=== PATIENT | female | born 1950 ===

== ENCOUNTER 2016-11-15 18:01 | Inpatient (IN) | payer MEDICARE, MEDICAID ==
[2016-11-15 18:38] VITALS: BMI 31.2
[2016-11-15] MEDS ORDERED: Sodium Chloride 0.9% 1,000 ML IV ONE (19:53)
--- NOTE | 2016-11-15 19:53 | C.PDOC ---
History Of Present Illness Patient presents to the ER with a complaint of severe, sharp, stabbing, abdominal pain for the past 2-3 days, associated with nausea and vomiting. Patient reports having a PMHx of ovarian CA. Denies fever or chills. Time Seen by Provider: 11/15/16 19:52 Chief Complaint (Nursing): Abdominal Pain History Per: Patient History/Exam Limitations: no limitations Onset/Duration Of Symptoms: Days (2-3) Current Symptoms Are (Timing): Still Present Context: Other (Not known) Severity: Moderate Pain Scale Rating Of: 5 Location Of Pain/Discomfort: Diffuse Radiation Of Pain To:: None Quality Of Discomfort: Sharp, Stabbing Associated Symptoms: Nausea, Vomiting. denies: Fever, Chills Exacerbating Factors: None Alleviating Factors: None Recent travel outside of the [place]: No Abnormal Vaginal Bleeding: No Past Medical History Reviewed: Historical Data, Nursing Documentation, Vital Signs Vital Signs: Last Vital Signs Temp 98.1 F 11/15/16 18:38 Pulse 78 11/15/16 18:38 Resp 16 11/15/16 18:38 BP 130/80 11/15/16 18:38 Pulse Ox 100 11/15/16 22:54 - Medical History PMH: Arthritis, HTN, Hypercholesterolemia, Hyperlipidemia, Malignancy (Ovarian cancer, uterine cancer, colon cancer.), Osteoporosis Surgical History: No Surg Hx Family History: States: No Known Family Hx - Social History Hx Tobacco Use: No Hx Alcohol Use: No Hx Substance Use: No - Immunization History Hx Tetanus Toxoid Vaccination: No Hx Influenza Vaccination: No Hx Pneumococcal Vaccination: No Review Of Systems Constitutional: Negative for: Fever, Chills ENT: Negative for: Throat Pain Cardiovascular: Negative for: Chest Pain, Palpitations Respiratory: Negative for: Shortness of Breath Gastrointestinal: Positive for: Nausea, Vomiting, Abdominal Pain Genitourinary: Negative for: Hematuria Musculoskeletal: Negative for: Back Pain Skin: Negative for: Rash, Lesions, Jaundice, Bruising Neurological: Negative for: Weakness Psych: Negative for: Anxiety Physical Exam - Physical Exam Appears: Non-toxic Skin: Warm, Dry Head: Normacephalic Eye(s): bilateral: Normal Inspection Oral Mucosa: Moist Neck: Supple Chest: Symmetrical, No Tenderness Cardiovascular: Rhythm Regular, No Murmur Respiratory: No Rales, No Rhonchi, No Wheezing Gastrointestinal/Abdominal: Soft, No Tenderness Back: Normal Inspection Extremity: Normal ROM Extremity: Bilateral: Atraumatic, Normal Color And Temperature, Normal ROM Neurological/Psych: Oriented x3, Normal Speech, Normal Cognition Gait: Steady ED Course And Treatment - Laboratory Results Result Diagrams: 11/15/16 20:02 11/15/16 20:02 O2 Sat by Pulse Oximetry: 100 Pulse Ox Interpretation: Normal Progress Note: CT abd/pel w/ IV contrast, blood work and urinalysis ordered. Pepcid IVP, morphine IVP, zofran IVP, and IV fluids administered. Disposition Discussed With Dr.: Raj Tony Comment: accepted the pt on his service and took over the care at 10:53 PM Doctor Will See Patient In The: Hospital Counseled Patient/Family Regarding: Studies Performed, Diagnosis - Disposition Disposition: HOSPITALIZED Disposition Time: 19:53 Condition: FAIR - Clinical Impression Clinical Impression: Abdominal pain, Pancreatitis - Scribe Statement The provider has reviewed the documentation as recorded by the Scribsamuel Moore All medical record entries made by the Curtibsamuel were at my direction and personally dictated by me. I have reviewed the chart and agree that the record accurately reflects my personal performance of the history, physical exam, medical decision making, and the department course for this patient. I have also personally directed, reviewed, and agree with the discharge instructions and disposition. Decision To Admit - Pt Status Changed To: Hospital Disposition Of: Inpatient - Admit Certification Admit to Inpatient:: After my assessment, the patient will require hospitalization for at least two midnights. This is because of the severity of symptoms shown, intensity of services needed, and/or the medical risk in this patient being treated as an outpatient. - InPatient: Physician Admission Certification:: After my assessment, the patient will require hospitalization for at least two midnights. This is because of the severity of symptoms shown, intensity of services needed, and/or the medical risk in this patient being treated as an outpatient. - . Bed Request Type: Regular Admitting Physician: Raj Tony Patient Diagnosis: Abdominal pain, Pancreatitis
[2016-11-15] MEDS ORDERED: Sodium Chloride 0.9% 1,000 ML ONE (20:00)
[2016-11-15] MEDS ORDERED: Morphine 4 MG/ML VIAL ONE (20:00)
[2016-11-15 20:07] LABS: BASO # 0.1 K/uL (0.0-0.2); BASO % 0.9 % (0.0-2.0); EOS # 0.5 K/uL (0.0-0.7); EOS % 3.9 % (0.0-4.0); HEMATOCRIT 42.9 % (34.0-47.0); LYMPH # 3.9 K/uL (1.0-4.3); LYMPH % 29.2 % (20.0-40.0); MEAN CORPUSCULAR HEMOGLOBIN 27.5 pg (27.0-31.0); MEAN CORPUSCULAR HGB CONC 32.4 g/dL (33.0-37.0); MONO # 0.9 K/uL (0.0-0.8); RED CELL DISTRIBUTION WIDTH 14.2 % (11.5-14.5); WHITE BLOOD COUNT 13.3 K/uL (4.8-10.8)
[2016-11-15 20:10] LABS: RBC URINE < 1 /hpf (0-3); URINE BILIRUBIN NEGATIVE (NEGATIVE); URINE BLOOD NEGATIVE (NEGATIVE); URINE COLOR Colorless (YELLOW); URINE GLUCOSE (UA) NORMAL (Normal); URINE KETONE NEGATIVE (NEGATIVE); URINE LEUKOCYTE ESTERASE NEG Leu/uL (Negative); URINE PROTEIN NEGATIVE (NEGATIVE); URINE UROBILINOGEN NORMAL mg/dL (0.2-1.0); WBC URINE 2 /hpf (0-5)
[2016-11-15 20:36] LABS: CHLORIDE 99 mmol/L (98-107)
[2016-11-15 20:37] LABS: POTASSIUM 3.9 mmol/L (3.6-5.2); SODIUM 134 mmol/L (132-148)
[2016-11-15 20:40] LABS: ALB/GLOB RATIO 1.3 (1.0-2.1); ALKALINE PHOSPHATASE 94 U/L (38-126); ALT/SGPT 26 U/L (9-52); AST/SGOT 27 U/L (14-36); BILIRUBIN,TOTAL 0.5 mg/dL (0.2-1.3); BLOOD UREA NITROGEN 16 mg/dL (7-17); CALCIUM 8.9 mg/dl (8.6-10.4); CARBON DIOXIDE 27 mmol/L (22-30); GFR AFRICAN-AMERICAN > 60; GLUCOSE,RANDOM 105 mg/dL (65-105); TOTAL PROTEIN 7.1 g/dL (6.3-8.3)
[2016-11-15] MEDS ORDERED: HYDROmorphone 1 mg/ml ISec IVP STA (21:26)
[2016-11-15] MEDS ORDERED: HYDROmorphone 1 mg/ml ISec ONE (21:33)
[2016-11-15] MEDS ORDERED: DiphenhydrAMINE 50 mg/ml Inj ONE (21:49)
[2016-11-15] MEDS ORDERED: DiphenhydrAMINE 50 mg/ml Inj IVP STA (21:50)
[2016-11-16 00:15] VITALS: RESP 20
[2016-11-16] MEDS ORDERED: DiphenhydrAMINE 50 mg/ml Inj IVP PRN (01:04)
[2016-11-16] MEDS: Dextrose 5%/0.45% NS 1,000 ML IV SCH ×4 (01:45→21:24)
[2016-11-16 08:14] LABS: BASO # 0.1 K/uL (0.0-0.2); BASO % 0.9 % (0.0-2.0); EOS # 0.6 K/uL (0.0-0.7); EOS % 5.3 % (0.0-4.0); HEMATOCRIT 40.2 % (34.0-47.0); LYMPH # 3.3 K/uL (1.0-4.3); LYMPH % 32.2 % (20.0-40.0); MEAN CELL VOLUME 85.1 fL (81.0-99.0); MEAN CORPUSCULAR HEMOGLOBIN 27.7 pg (27.0-31.0); MEAN CORPUSCULAR HGB CONC 32.6 g/dL (33.0-37.0); MEAN PLATELET VOLUME 9.4 fL (7.2-11.7); MONO # 0.7 K/uL (0.0-0.8); MONO % 6.6 % (0.0-10.0); RED CELL DISTRIBUTION WIDTH 14.3 % (11.5-14.5); WHITE BLOOD COUNT 10.4 K/uL (4.8-10.8)
[2016-11-16 08:25] LABS: CHLORIDE 99 mmol/L (98-107); SODIUM 135 mmol/L (132-148)
[2016-11-16 08:26] LABS: POTASSIUM 3.6 mmol/L (3.6-5.2)
[2016-11-16 08:28] LABS: ALB/GLOB RATIO 1.2 (1.0-2.1); ALKALINE PHOSPHATASE 59 U/L (38-126); ALT/SGPT 26 U/L (9-52); AST/SGOT 24 U/L (14-36); BILIRUBIN,TOTAL 0.7 mg/dL (0.2-1.3); BLOOD UREA NITROGEN 12 mg/dL (7-17); CARBON DIOXIDE 30 mmol/L (22-30); GFR AFRICAN-AMERICAN > 60; GLUCOSE,RANDOM 95 mg/dL (65-105); TOTAL PROTEIN 6.2 g/dL (6.3-8.3)
[2016-11-16 08:29] LABS: CALCIUM 8.2 mg/dl (8.6-10.4)
[2016-11-16] MEDS: Enoxaparin 40 mg Syringe SC SCH (10:36)
--- NOTE | 2016-11-16 12:14 | CT ---
PROCEDURE: CT Abdomen and Pelvis with contrast HISTORY: abd pain, ovarian ca COMPARISON: Comparison is made to the previous study dated 08/27/2016 TECHNIQUE: Contrast dose: 100 cc Omnipaque 300. Axial and reformatted coronal and sagittal CT images of the abdomen and pelvis were obtained after IV contrast administration. Radiation dose: Total exam DLP = 888.16 mGy-cm. This CT exam was performed using one or more of the following dose reduction techniques: Automated exposure control, adjustment of the mA and/or kV according to patient size, and/or use of iterative reconstruction technique. FINDINGS: LOWER THORAX: No evidence of acute pathology. No significant interval change in the liver lobular stand. LIVER: Unremarkable. No gross lesion or ductal dilatation. GALLBLADDER AND BILE DUCTS: Unremarkable. PANCREAS: Unremarkable. No gross lesion or ductal dilatation. SPLEEN: Unremarkable. ADRENALS: Unremarkable. No mass. KIDNEYS AND URETERS: Unremarkable. No hydronephrosis. No solid mass. VASCULATURE: Unremarkable. No aortic aneurysm. BOWEL: No evidence of bowel obstruction. Again seen is anterior lower abdominal wall ventral hernia contains bowel loops without evidence of obstruction or incarceration. No evidence of pneumatosis or diverticulitis. The stomach is not distended. APPENDIX: Normal appendix. PERITONEUM: Unremarkable. No free fluid. No free air. LYMPH NODES: Unremarkable. No enlarged lymph nodes. BLADDER: Unremarkable. REPRODUCTIVE: The patient is likely status post total hysterectomy. BONES: No acute fracture. OTHER FINDINGS: None. IMPRESSION: Moderate size ventral hernia to the right of the midline in the lower abdominal wall contains bowel loops without evidence of obstruction or incarceration. Prior bowel surgery. No evidence of bowel obstruction. Preliminary report was submitted by [facility].
--- NOTE | 2016-11-16 13:23 | US ---
HISTORY: pancreatitis COMPARISON: Comparison is made to the previous CT of the abdomen dated 11/15/2016 TECHNIQUE: Sonographic evaluation of the abdomen. FINDINGS: LIVER: Measures 14.2 cm. Increased echogenicity of the liver parenchyma. No mass. No intrahepatic bile duct dilatation. GALLBLADDER: Unremarkable. No gallstones. COMMON BILE DUCT: Measures 3.6 mm. No stones. No dilatation. PANCREAS: No evidence of suspicious lesion in the pancreas. The pancreas partially image due to overlying bowel gas. RIGHT KIDNEY: Measures 9.5 x 4.4 x 4.3cm. Normal echogenicity. No calculus, mass, or hydronephrosis. LEFT KIDNEY: Measures 9.7 x 4.6 x 4.4cm. Normal echogenicity. No calculus, mass, or hydronephrosis. SPLEEN: Normal in size and contour. No mass. AORTA: No aneurysmal dilatation. IVC: Unremarkable. OTHER FINDINGS: None. IMPRESSION: Echogenic liver suggestive of fatty liver infiltration. Partially visualized pancreas demonstrate no mass lesion or dilated main pancreatic duct.
--- NOTE | 2016-11-16 14:38 | CP.PCM.HP ---
History of Present Illness - History of Present Illness History of Present Illness: 66-year-old female patient with past medical history of hypertension, colon cancer with lung metastasis S/P partial colectomy and chemotherapy 5 years ago, and ovarian/uterine cancer S/P total hysterectomy presenting with abdominal pain. Patient describes sudden onset of progressive epigastric and diffuse upper abdominal pain with radiation to back for 3 days prior to admission. Associated chills, nausea and 3 episodes of diarrhea daily for 3 days. Denies vomiting, hematemesis, diarrhea, constipation, melena, hematochezia, fever, sweats. Denies alcohol use or fatty food intake. Present on Admission - Present on Admission Any Indicators Present on Admission: No Past Patient History - Past Medical History & Family History Past Medical History?: Yes - Past Social History Smoking Status: Never Smoked - CARDIAC Hx Cardiac Disorders: Yes Hx Hypercholesterolemia: Yes Hx Hypertension: Yes - PULMONARY Hx Respiratory Disorders: Yes Other/Comment: Right lung cancer - chemo ( 5 years ago) - NEUROLOGICAL Hx Neurological Disorder: No - HEENT Hx HEENT Problems: No - RENAL Hx Chronic Kidney Disease: No - ENDOCRINE/METABOLIC Hx Endocrine Disorders: No - HEMATOLOGICAL/ONCOLOGICAL Hx Blood Disorders: Yes Hx Cancer: Yes (lung and colon ca) Hx Chemotherapy: Yes (5 years ago) Other/Comment: Pt in remission - INTEGUMENTARY Hx Dermatological Problems: No - MUSCULOSKELETAL/RHEUMATOLOGICAL Hx Arthritis: Yes - GASTROINTESTINAL Hx Gastrointestinal Disorders: Yes Hx Gastroesophageal Reflux: Yes - GENITOURINARY/GYNECOLOGICAL Hx Genitourinary Disorders: Yes Hx Ovarian Cancer: Yes Hx Uterine Cancer: Yes - PSYCHIATRIC Hx Psychophysiologic Disorder: No Hx Substance Use: No - SURGICAL HISTORY Hx Surgeries: Yes Hx Hysterectomy: Yes Other/Comment: colon surgery, removed - ANESTHESIA Hx Anesthesia: Yes Hx Anesthesia Reactions: No Hx Malignant Hyperthermia: No Meds Home Medications: Home Medication List Medication Instructions Recorded Confirmed Type Ibuprofen [Motrin Tab] 600 mg PO Q8H PRN #12 tab 11/18/16 Rx Lisinopril [Zestril] 10 mg PO DAILY #30 11/18/16 Rx Omeprazole 20 mg PO DAILY #30 11/18/16 Rx Allergies/Adverse Reactions: Allergies Allergy/AdvReac Type Severity Reaction Status Date / Time shrimp Allergy Severe RASH Verified 01/16/17 04:19 iodine Allergy Verified 01/16/17 04:19 hydromorphone [From Dilaudid] AdvReac ITCHING Verified 01/16/17 04:19 Physical Exam - Constitutional Appears: Well - Head Exam Head Exam: ATRAUMATIC, NORMAL INSPECTION, NORMOCEPHALIC - Eye Exam Eye Exam: EOMI, Normal appearance, PERRL Pupil Exam: NORMAL ACCOMODATION, PERRL - ENT Exam ENT Exam: Mucous Membranes Moist, Normal Exam - Neck Exam Neck exam: Positive for: Normal Inspection - Respiratory Exam Respiratory Exam: Decreased Breath Sounds - Cardiovascular Exam Cardiovascular Exam: REGULAR RHYTHM, +S1, +S2 - GI/Abdominal Exam GI & Abdominal Exam: Diminished Bowel Sounds, Soft - Rectal Exam Rectal Exam: Deferred Results - Vital Signs Recent Vital Signs: Last Vital Signs Temp 97.9 F 11/16/16 07:38 Pulse 78 11/16/16 07:38 Resp 20 11/16/16 07:38 BP 98/60 L 11/16/16 07:38 Pulse Ox 96 11/16/16 07:38 - Labs Result Diagrams: 11/17/16 08:12 11/17/16 08:12 Labs: Laboratory Results - last 24 hr 11/16/16 11/16/16 08:07 08:07 WBC 10.4 RBC 4.72 Hgb 13.1 Hct 40.2 MCV 85.1 MCH 27.7 MCHC 32.6 L RDW 14.3 Plt Count 223 MPV 9.4 Neut % (Auto) 55.0 Lymph % (Auto) 32.2 Whitman % (Auto) 6.6 Eos % (Auto) 5.3 H Baso % (Auto) 0.9 Neut # 5.7 Lymph # 3.3 Whitman # 0.7 Eos # 0.6 Baso # 0.1 Sodium 135 Potassium 3.6 Chloride 99 Carbon Dioxide 30 Anion Gap 10 BUN 12 Creatinine 0.6 L Est GFR ( Amer) > 60 Est GFR (Non-Af Amer) > 60 Random Glucose 95 Calcium 8.2 L Total Bilirubin 0.7 AST 24 ALT 26 Alkaline Phosphatase 59 Total Protein 6.2 L Albumin 3.4 L Globulin 2.8 Albumin/Globulin Ratio 1.2 Lipase 1570 H Assessment & Plan (1) Abdominal pain Status: Acute (2) Acute chest wall pain Status: Acute (3) Back pain Status: Acute (4) Bronchitis Status: Acute (5) Bronchitis Status: Acute (6) Chest pain Status: Acute (7) Conjunctivitis, left eye Status: Acute (8) Constipation Status: Acute (9) Cough Status: Acute (10) Diarrhea Status: Acute (11) Dyspnea Status: Acute (12) Dysuria Status: Acute (13) Enteritis Status: Acute (14) Pancreatitis Status: Acute (15) Thoracic back pain Status: Acute (16) Thoracic back sprain Status: Acute - Assessment and Plan (Free Text) Plan: Consult neurology Consult GI Benadryl Lovenox IV fluid Follow-up with lab
--- NOTE | 2016-11-16 17:39 | RAD ---
PROCEDURE: Cervical Spine Radiographs. HISTORY: Pain. COMPARISON: None. FINDINGS: BONES: Straightening of the cervical spine is noted. DISC SPACES: Av degenerative changes more prominent at C4-C5 associated with narrowing of the intervertebral disc space. SOFT TISSUES: Normal. No prevertebral soft tissue swelling. OTHER FINDINGS: None. IMPRESSION: Degenerative changes more prominent at C4-C5 associated with osteophyte formation and narrowing of the intervertebral disc space.
--- NOTE | 2016-11-16 19:32 | CON ---
DATE: 11/16/2016 HISTORY OF PRESENT ILLNESS: This is a 66-year-old female with past medical history of hyper tension, high cholesterol, hyperlipidemia, and ovarian, uterine and colon cancer, osteoporosis, arthr itis, came here with the complaint of abdominal pain for 3 days. The patient also been complaining o f pain in the right upper extremity for the last and called to evaluate the patient. The patie nt is ambulating and no numbness, tingling in the pain. PAST MEDICAL HISTORY: As above. SOCIAL HISTORY: Does smoke, does not drink. PHYSICAL EXAMINATION: VITAL SIGNS: Blood pressure 130/80. HEENT: Normocephalic, atraumatic. NECK: Supple. NEUROLOGIC: Alert, awake, oriented x 3. No aphasia. Cranial nerves II through XII were tested. Pu pils reactive. EOM intact. Visual turner full. No facial asymmetry. Tongue midline. Motor examin ation: Moves all the extremities equally. Tone normal. Deep tendon reflexes 1+. Both plantars are downgoing. Sensory appears intact. Cerebellar, gait normal. IMPRESSION: Possibly cervical radiculopathy. We will do the MRI of the cervical spine and further m anagement after the results of above tests. LABORATORY DATA: WBC 13.3, hemoglobin 13.9, hematocrit 42.9, platelets 264. Sodium 134, potassium 3 .9, chloride 99, CO2 of 27, glucose 105, BUN 16, creatinine 0.8 and workup in progress. We will foll ow up. Efra Echevarria MD cc: [id number] TT: 11/16/2016 19:31:44 Confirmation # [id number] Dictation # [id number] mn
[2016-11-17] MEDS: Dextrose 5%/0.45% NS 1,000 ML IV SCH ×2 (03:13→07:43)
--- NOTE | 2016-11-17 06:45 | CP.PCM.CON ---
<Helen Gonzalez - Last Filed: 11/17/16 10:13> History of Present Illness - History of Present Illness History of Present Illness: Gastroenterology Fellow/PGY4 Consult Note 66 year old female with history of Hypertension, Colon cancer with lung metastases s/p partial colectomy and chemotherapy fiver years ago, and ovarian/ uterine cancer s/p total hysterectomy presenting with abdominal pain. She describes sudden onset of progressive epigastric and diffuse upper abdomen pain with radiation to back for three days prior to admission. Associated chills, nausea, and three episodes of diarrhea daily for three days. Denies vomiting, hematemesis, diarrhea, constipation, melena, hematochezia, fever, sweats. Denies alcohol use or fatty food intake. Last EGD and colonoscopy 2015 endorsed to show Gastritis nd no polyps/mass lesions. Patient states she has Lung imaging screening every six months, last in June 2016. Colonoscopy surveillance every two years. Family- denies colon cancer Social- denies tobacco, alcohol, illicit drug use Surgery- partial colectomy, total hysterectomy Review of Systems - Review of Systems Review of Systems: A 12-point review of systems negative except for as above Past Patient History - Past Medical History & Family History Past Medical History?: Yes - Past Social History Smoking Status: Never Smoked - CARDIAC Hx Cardiac Disorders: Yes Hx Hypercholesterolemia: Yes Hx Hypertension: Yes - PULMONARY Hx Respiratory Disorders: Yes Other/Comment: Right lung cancer - chemo ( 5 years ago) - NEUROLOGICAL Hx Neurological Disorder: No - HEENT Hx HEENT Problems: No - RENAL Hx Chronic Kidney Disease: No - ENDOCRINE/METABOLIC Hx Endocrine Disorders: No - HEMATOLOGICAL/ONCOLOGICAL Hx Blood Disorders: Yes Hx Cancer: Yes (lung and colon ca) Hx Chemotherapy: Yes (5 years ago) Other/Comment: Pt in remission - INTEGUMENTARY Hx Dermatological Problems: No - MUSCULOSKELETAL/RHEUMATOLOGICAL Hx Arthritis: Yes - GASTROINTESTINAL Hx Gastrointestinal Disorders: Yes Hx Gastroesophageal Reflux: Yes - GENITOURINARY/GYNECOLOGICAL Hx Genitourinary Disorders: Yes Hx Ovarian Cancer: Yes Hx Uterine Cancer: Yes - PSYCHIATRIC Hx Psychophysiologic Disorder: No Hx Substance Use: No - SURGICAL HISTORY Hx Surgeries: Yes Hx Hysterectomy: Yes Other/Comment: colon surgery, removed - ANESTHESIA Hx Anesthesia: Yes Hx Anesthesia Reactions: No Hx Malignant Hyperthermia: No Meds Allergies/Adverse Reactions: Allergies Allergy/AdvReac Type Severity Reaction Status Date / Time shrimp Allergy Severe RASH Verified 11/15/16 18:37 iodine Allergy Verified 11/15/16 18:37 hydromorphone [From Dilaudid] AdvReac ITCHING Verified 11/16/16 00:39 - Medications Medications: Current Medications Diphenhydramine HCl (Benadryl) 25 mg IVP Q8 PRN PRN Reason: itch Enoxaparin Sodium (Lovenox) 40 mg SC DAILY [facility] Last Admin: 11/16/16 10:36 Dose: 40 mg Dextrose/Sodium Chloride (Dextrose 5%/0.45% Ns 1000 Ml) 1,000 mls @ 100 mls/hr IV .Q10H [facility] Last Admin: 11/17/16 03:13 Dose: 100 mls/hr Ketorolac Tromethamine (Toradol) 15 mg IVP Q8 PRN PRN Reason: Pain, moderate (4-7) Last Admin: 11/16/16 13:07 Dose: 15 mg Pneumococcal Polyvalent Vaccine (Pneumovax 23 Vaccine) 0.5 ml IM .ONCE ONE Stop: 11/18/16 10:01 Physical Exam - Constitutional Appears: Non-toxic, No Acute Distress - Head Exam Head Exam: ATRAUMATIC, NORMOCEPHALIC - Eye Exam Eye Exam: EOMI, PERRL Pupil Exam: PERRL. absent: Miosis, Mydriatic - ENT Exam ENT Exam: Mucous Membranes Moist, Normal Oropharynx - Neck Exam Neck exam: Positive for: Full Rom, Normal Inspection - Respiratory Exam Respiratory Exam: Clear to Auscultation Bilateral. absent: Rales, Rhonchi, Wheezes - Cardiovascular Exam Cardiovascular Exam: RRR, +S1, +S2. absent: Gallop, Rubs - GI/Abdominal Exam GI & Abdominal Exam: Hernia, Normal Bowel Sounds, Soft, Tenderness. absent: Distended, Firm, Guarding, Organomegaly, Rebound, Rigid Additional comments: epigastric tenderness to palpation - Extremities Exam Extremities exam: Positive for: full ROM. Negative for: pedal edema - Neurological Exam Neurological exam: Alert, Oriented x3 - Psychiatric Exam Psychiatric exam: Normal Affect, Normal Mood - Skin Skin Exam: Dry, Intact, Normal Color, Warm Results - Vital Signs Recent Vital Signs: Last Vital Signs Temp 99.1 F 11/16/16 23:29 Pulse 85 11/16/16 23:29 Resp 20 11/16/16 23:29 BP 102/60 11/16/16 23:29 Pulse Ox 95 11/16/16 23:29 - Labs Result Diagrams: 11/17/16 08:12 11/17/16 08:12 Labs: Laboratory Results - last 24 hr 11/16/16 11/16/16 08:07 08:07 WBC 10.4 RBC 4.72 Hgb 13.1 Hct 40.2 MCV 85.1 MCH 27.7 MCHC 32.6 L RDW 14.3 Plt Count 223 MPV 9.4 Neut % (Auto) 55.0 Lymph % (Auto) 32.2 Kern % (Auto) 6.6 Eos % (Auto) 5.3 H Baso % (Auto) 0.9 Neut # 5.7 Lymph # 3.3 Kern # 0.7 Eos # 0.6 Baso # 0.1 Sodium 135 Potassium 3.6 Chloride 99 Carbon Dioxide 30 Anion Gap 10 BUN 12 Creatinine 0.6 L Est GFR ( Amer) > 60 Est GFR (Non-Af Amer) > 60 Random Glucose 95 Calcium 8.2 L Total Bilirubin 0.7 AST 24 ALT 26 Alkaline Phosphatase 59 Total Protein 6.2 L Albumin 3.4 L Globulin 2.8 Albumin/Globulin Ratio 1.2 Lipase 1570 H Assessment & Plan - Assessment and Plan (Free Text) Assessment: 66 year old female with history of Hypertension, Colon cancer with lung metastases s/p partial colectomy and chemotherapy fiver years ago, and ovarian/ uterine cancer s/p total hysterectomy presenting with abdominal pain. Active treatment of acute mild pancreatitis. Last EGD and colonoscopy 2015 endorsed to show Gastritis nd no polyps/mass lesions. Patient states she has Lung imaging screening every six months, last in June 2016. and Colonoscopy surveillance every two years. Plan: >continue IVFs >advance to low fat diet >ordered Lipid panel, IgG4 >Ultrasound- no gallstones >supportive care: pain control, antiemetics >will follow clinical course >may require outpatient EUS if workup is negative for etiology of pancreatitis <Pascual Wang - Last Filed: 11/17/16 11:18> Meds - Medications Medications: Current Medications Diphenhydramine HCl (Benadryl) 25 mg IVP Q8 PRN PRN Reason: itch Enoxaparin Sodium (Lovenox) 40 mg SC DAILY [facility] Last Admin: 11/17/16 09:58 Dose: 40 mg Dextrose/Sodium Chloride (Dextrose 5%/0.45% Ns 1000 Ml) 1,000 mls @ 100 mls/hr IV .Q10H [facility] Last Admin: 11/17/16 07:43 Dose: Not Given Ketorolac Tromethamine (Toradol) 15 mg IVP Q8 PRN PRN Reason: Pain, moderate (4-7) Last Admin: 11/16/16 13:07 Dose: 15 mg Pneumococcal Polyvalent Vaccine (Pneumovax 23 Vaccine) 0.5 ml IM .ONCE ONE Stop: 11/18/16 10:01 Results - Vital Signs Recent Vital Signs: Last Vital Signs Temp 97.7 F 11/17/16 08:00 Pulse 68 11/17/16 08:00 Resp 20 11/17/16 08:00 BP 113/67 11/17/16 08:00 Pulse Ox 98 11/17/16 08:00 - Labs Result Diagrams: 11/17/16 08:12 11/17/16 08:12 Labs: Laboratory Results - last 24 hr 11/17/16 11/17/16 11/17/16 08:12 08:12 08:12 WBC 7.0 RBC 5.02 Hgb 14.0 Hct 42.4 MCV 84.6 MCH 27.9 MCHC 32.9 L RDW 14.2 Plt Count 229 MPV 9.5 Neut % (Auto) 80.1 H Lymph % (Auto) 10.3 L Kern % (Auto) 3.9 Eos % (Auto) 4.9 H Baso % (Auto) 0.8 Neut # 5.6 Lymph # 0.7 L Kern # 0.3 Eos # 0.3 Baso # 0.1 Sodium 135 Potassium 3.4 L Chloride 99 Carbon Dioxide 26 Anion Gap 13 BUN 10 Creatinine 0.7 Est GFR ( Amer) > 60 Est GFR (Non-Af Amer) > 60 Random Glucose 129 H Calcium 8.5 L Total Bilirubin 1.2 Direct Bilirubin 0.5 H AST 32 ALT 32 Alkaline Phosphatase 65 Total Protein 6.8 Albumin 3.7 Globulin 3.1 Albumin/Globulin Ratio 1.2 Triglycerides 106 Cholesterol 211 H LDL Cholesterol Direct 120 HDL Cholesterol 45 Lipase 144 Attending/Attestation - Attestation I have personally seen and examined this patient.: Yes I have fully participated in the care of the patient.: Yes I have reviewed all pertinent clinical information: Yes Notes (Text): 11/17/16 11:16 66 year old female with history of HTN, Colon cancer with lung metastases s/p partial colectomy and chemotherapy five years ago, and ovarian/uterine cancer s /p total hysterectomy admitted with acute pancreatitis. 1. Acute pancreatitis Plan: -pain resolved currently -advance diet to low fat -uncertain cause for pancreatitis, check lipids/igg4 -consider EUS in 4-6 weeks
[2016-11-17 08:27] LABS: BASO # 0.1 K/uL (0.0-0.2); BASO % 0.8 % (0.0-2.0); EOS # 0.3 K/uL (0.0-0.7); EOS % 4.9 % (0.0-4.0); HEMATOCRIT 42.4 % (34.0-47.0); LYMPH # 0.7 K/uL (1.0-4.3); LYMPH % 10.3 % (20.0-40.0); MEAN CELL VOLUME 84.6 fL (81.0-99.0); MEAN CORPUSCULAR HEMOGLOBIN 27.9 pg (27.0-31.0); MEAN CORPUSCULAR HGB CONC 32.9 g/dL (33.0-37.0); MEAN PLATELET VOLUME 9.5 fL (7.2-11.7); MONO # 0.3 K/uL (0.0-0.8); MONO % 3.9 % (0.0-10.0); RED CELL DISTRIBUTION WIDTH 14.2 % (11.5-14.5)
[2016-11-17 08:40] LABS: ALB/GLOB RATIO 1.2 (1.0-2.1); BILIRUBIN,DIRECT 0.5 mg/dL (0.0-0.4); BILIRUBIN,TOTAL 1.2 mg/dL (0.2-1.3); TOTAL PROTEIN 6.8 g/dL (6.3-8.3)
[2016-11-17 08:43] LABS: CHLORIDE 99 mmol/L (98-107); SODIUM 135 mmol/L (132-148)
[2016-11-17 08:44] LABS: POTASSIUM 3.4 mmol/L (3.6-5.2)
[2016-11-17 08:46] LABS: BLOOD UREA NITROGEN 10 mg/dL (7-17); CARBON DIOXIDE 26 mmol/L (22-30); GFR AFRICAN-AMERICAN > 60
[2016-11-17 08:47] LABS: CALCIUM 8.5 mg/dl (8.6-10.4); GLUCOSE,RANDOM 129 mg/dL (65-105)
--- NOTE | 2016-11-17 09:01 | CT ---
PROCEDURE: CT Cervical Spine without contrast HISTORY: Pain and lump this in the right upper extremity. COMPARISON: None available. TECHNIQUE: Axial computed tomography images were obtained of the cervical spine without the use of intravenous contrast. Coronal and sagittal reformatted images were created and reviewed. Radiation dose: Total exam DLP = 492.41 mGy-cm. This CT exam was performed using one or more of the following dose reduction techniques: Automated exposure control, adjustment of the mA and/or kV according to patient size, and/or use of iterative reconstruction technique. FINDINGS: VERTEBRAE: No fracture. Straightening of the cervical spine which could be due to muscle spasm. . No destructive bony lesion. DISCS/SPINAL CANAL/NEURAL FORAMINA: Moderate degenerative changes seen more prominent at C4-C5. Moderate to severe narrowing of the intervertebral disc is space at C4-C5. Moderate size osteophyte disc bulging complex at C4-C5 associated with spinal and neural foraminal narrowing left more than right. PARASPINAL SOFT TISSUES: Unremarkable. OTHER FINDINGS: None. IMPRESSION: Moderate degenerative changes more prominent at C4-C5. Osteophyte disc bulging complex at C4-C5 associated with spinal and neural foraminal narrowing.
[2016-11-17] MEDS: Enoxaparin 40 mg Syringe SC SCH (09:58)
[2016-11-17] MEDS ORDERED: Potassium Chloride 10 mEq ER Tab PO STA (16:18)
--- NOTE | 2016-11-17 16:22 | CP.PCM.PN ---
Subjective - Date & Time of Evaluation Date of Evaluation: 11/17/16 Time of Evaluation: 13:00 - Subjective Subjective: clinically same Objective - Vital Signs/Intake and Output Vital Signs (last 24 hours): Temp Pulse Resp BP Pulse Ox 97.7 F 68 20 113/67 98 11/17/16 08:00 11/17/16 08:00 11/17/16 08:00 11/17/16 08:00 11/17/16 08:00 Intake and Output: 11/17/16 11/17/16 06:59 18:59 Intake Total 800 1950 Balance 800 1950 - Medications Medications: Current Medications Diphenhydramine HCl (Benadryl) 25 mg IVP Q8 PRN PRN Reason: itch Enoxaparin Sodium (Lovenox) 40 mg SC DAILY [facility] Last Admin: 11/17/16 09:58 Dose: 40 mg Ketorolac Tromethamine (Toradol) 15 mg IVP Q8 PRN PRN Reason: Pain, moderate (4-7) Last Admin: 11/16/16 13:07 Dose: 15 mg Pneumococcal Polyvalent Vaccine (Pneumovax 23 Vaccine) 0.5 ml IM .ONCE ONE Stop: 11/18/16 10:01 - Labs Labs: 11/17/16 08:12 11/17/16 08:12 PT 11.5 SECONDS (9.7-12.2) 11/15/16 20:03 INR 1.0 11/15/16 20:03 APTT 24 SECONDS (21-34) 11/15/16 20:03 - Constitutional Appears: Well - Head Exam Head Exam: ATRAUMATIC, NORMAL INSPECTION, NORMOCEPHALIC - Eye Exam Eye Exam: EOMI, Normal appearance, PERRL Pupil Exam: NORMAL ACCOMODATION, PERRL - ENT Exam ENT Exam: Mucous Membranes Moist, Normal Exam - Neck Exam Neck Exam: Full ROM, Normal Inspection. absent: Lymphadenopathy - Respiratory Exam Respiratory Exam: Clear to Ausculation Bilateral, NORMAL BREATHING PATTERN - Cardiovascular Exam Cardiovascular Exam: REGULAR RHYTHM, +S1, +S2 - GI/Abdominal Exam GI & Abdominal Exam: Distended, Soft - Rectal Exam Rectal Exam: Deferred, NORMAL INSPECTION - Neurological Exam Neurological Exam: Oriented x3 Assessment and Plan - Assessment and Plan (Free Text) Plan: consult Gastrologist consult ob/gy continue IVF USG -ve for gallstone toradol Lovenox f/u with labs
--- NOTE | 2016-11-18 07:24 | CP.PCM.PN ---
Subjective - Date & Time of Evaluation Date of Evaluation: 11/18/16 Time of Evaluation: 07:40 - Subjective Subjective: Medicine Note- Dr. Tony's service Patient was seen and examined at bedside. Patient reports she no longer has any abdominal pain, tolerating low fat diet. Patient denies nausea vomiting. Moving bowels normally. Objective - Vital Signs/Intake and Output Vital Signs (last 24 hours): Temp Pulse Resp BP Pulse Ox 98.5 F 82 20 123/64 95 11/17/16 23:31 11/17/16 23:31 11/17/16 23:31 11/17/16 23:31 11/17/16 23:31 Intake and Output: 11/18/16 11/18/16 06:59 18:59 Intake Total 250 Balance 250 - Medications Medications: Current Medications Diphenhydramine HCl (Benadryl) 25 mg IVP Q8 PRN PRN Reason: itch Enoxaparin Sodium (Lovenox) 40 mg SC DAILY [facility] Last Admin: 11/17/16 09:58 Dose: 40 mg Ketorolac Tromethamine (Toradol) 15 mg IVP Q8 PRN PRN Reason: Pain, moderate (4-7) Last Admin: 11/16/16 13:07 Dose: 15 mg Pneumococcal Polyvalent Vaccine (Pneumovax 23 Vaccine) 0.5 ml IM .ONCE ONE Stop: 11/18/16 10:01 - Labs Labs: 11/17/16 08:12 11/17/16 08:12 PT 11.5 SECONDS (9.7-12.2) 11/15/16 20:03 INR 1.0 11/15/16 20:03 APTT 24 SECONDS (21-34) 11/15/16 20:03 - Constitutional Appears: Non-toxic, No Acute Distress - Head Exam Head Exam: ATRAUMATIC, NORMAL INSPECTION, NORMOCEPHALIC - Eye Exam Pupil Exam: NORMAL ACCOMODATION, PERRL - ENT Exam ENT Exam: Mucous Membranes Moist - Respiratory Exam Respiratory Exam: Clear to Ausculation Bilateral, NORMAL BREATHING PATTERN. absent: Prolonged Expiratory Phase, Rales, Rhonchi, Wheezes - Cardiovascular Exam Cardiovascular Exam: REGULAR RHYTHM, +S1, +S2 - GI/Abdominal Exam GI & Abdominal Exam: Soft, Normal Bowel Sounds. absent: Guarding, Tenderness, Diminished Bowel Sounds, Hypoactive Bowel Sounds - Extremities Exam Extremities Exam: Normal Capillary Refill, Normal Inspection - Neurological Exam Neurological Exam: Alert, Awake, Oriented x3 - Psychiatric Exam Psychiatric exam: Normal Affect, Normal Mood - Skin Skin Exam: Dry, Intact, Normal Color, Warm Assessment and Plan - Assessment and Plan (Free Text) Assessment: Pancreatitis Consult GI- Dr. Kraus Abd/ Pelvis CT w IV contrast- Moderate size ventral hernia to the right of midline in the lower abdominal wall contains bowel loops without evidence of obstruction or incarceration. Prior bowel surgery. No evidence of bowel obstruction (Please see full report Abdominal Ultrasound- echogenic liver suggestive of fatty liver infiltration. Partially visualized pancreas demonstrate no mass lesion or dilated main pancreatic duct. Continue Low fat diet Pending IGG uclass 4 result Arm Pain Consult Neuro- Dr. Arcadio Echevarria Cervical Spine AP and Lateral- Degenerative changes moreprominent at C4-C5 associated with osteophyte formation and narrowing of the intervertebral disc space CT Cervical spine- moderate degenerative changes more prominent at C4- C5. Osteophyte disc bulging complex at C4-C5 associated with spinal and neural foraminal narrowing. MRI cervical spine pending Prophylactic Measure Lovenox 40mg SC Daily SCDs Protonix 40mg PO Daily Patient refuses to go to [facility]. Will DC home with home PT, discussed on phone with patient's daughter DC home as per Dr. Tony
[2016-11-18 08:51] VITALS: BP 144/77; PULSE 92; TEMP 98.2; O2SAT 96
[2016-11-18] MEDS ORDERED: Pneumococcal 23-Valent Vaccine IM ONE (10:00)
[2016-11-18] MEDS ORDERED: Pantoprazole 40 mg EC Tab PO SCH (10:00)
[2016-11-18] MEDS: Enoxaparin 40 mg Syringe SC SCH (10:35)
--- NOTE | 2016-11-18 12:08 | CP.PCM.PCO ---
Physician Communication Note - Physician Communication Note Physician Communication Note: pt will physical therapy outpatient for cervical area and arm pain. thx
--- NOTE | 2016-11-18 13:13 | CP.PCM.PN ---
Subjective - Date & Time of Evaluation Date of Evaluation: 11/18/16 Time of Evaluation: 10:00 - Subjective Subjective: Patient seen at bedside this am. States abdominal pain has resolved. Denies nausea, vomiting. Objective - Vital Signs/Intake and Output Vital Signs (last 24 hours): Temp Pulse Resp BP Pulse Ox 98.2 F 92 H 20 144/77 96 11/18/16 08:00 11/18/16 08:00 11/18/16 08:00 11/18/16 08:00 11/18/16 08:00 Intake and Output: 11/18/16 11/18/16 06:59 18:59 Intake Total 250 Balance 250 - Medications Medications: Current Medications Diphenhydramine HCl (Benadryl) 25 mg IVP Q8 PRN PRN Reason: itch Enoxaparin Sodium (Lovenox) 40 mg SC DAILY [facility] Last Admin: 11/18/16 10:35 Dose: Not Given Pantoprazole Sodium (Protonix Ec Tab) 40 mg PO DAILY [facility] Last Admin: 11/18/16 10:41 Dose: 40 mg - Labs Labs: 11/17/16 08:12 11/17/16 08:12 PT 11.5 SECONDS (9.7-12.2) 11/15/16 20:03 INR 1.0 11/15/16 20:03 APTT 24 SECONDS (21-34) 11/15/16 20:03 - Constitutional Appears: Well - Head Exam Head Exam: ATRAUMATIC, NORMAL INSPECTION, NORMOCEPHALIC - ENT Exam ENT Exam: Mucous Membranes Moist, Normal Exam - Neck Exam Neck Exam: Full ROM, Normal Inspection. absent: Lymphadenopathy - Cardiovascular Exam Cardiovascular Exam: REGULAR RHYTHM, +S1, +S2. absent: Murmur - GI/Abdominal Exam GI & Abdominal Exam: Soft, Normal Bowel Sounds. absent: Tenderness - Extremities Exam Extremities Exam: Full ROM, Normal Capillary Refill, Normal Inspection. absent : Joint Swelling, Pedal Edema - Neurological Exam Neurological Exam: Alert, Awake, CN II-XII Intact, Normal Gait, Oriented x3 - Psychiatric Exam Psychiatric exam: Normal Affect, Normal Mood Assessment and Plan - Assessment and Plan (Free Text) Assessment: 66 year old female with history of Hypertension, Colon cancer with lung metastases s/p partial colectomy and chemotherapy five years ago, and ovarian/ uterine cancer s/p total hysterectomy presenting with abdominal pain in setting of mild acute pancreatitis. Last EGD and colonoscopy 2015 with gastritis and polyps/mass lesions. Plan: - Advance diet to low fat as tolerated - IgG4 pending as no etiology of pancreatitis found - Ultrasound- no gallstones - Outpatient EUS once discharged with Dr Wang - Will sign off now as pancreatitis has resolved - Thank you for letting us participate in the care of this patient
== END 2016-11-18 13:45 | disposition home or self-care (01) | DRG 440 ==
LOC: C.ER 18:01 → C.9E 22:55 → C.3T 23:49
PROVIDERS: ADMIT Internal Medicine Nephrology; ATTEND Internal Medicine Nephrology
DX: K85.90 Acute pancreatitis without necrosis or infection, unspecified (principal); I10 Essential (primary) hypertension; M81.0 Age-related osteoporosis without current pathological fracture; E78.5 Hyperlipidemia, unspecified; E78.00 Pure hypercholesterolemia, unspecified; M19.90 Unspecified osteoarthritis, unspecified site; Z85.038 Personal history of other malignant neoplasm of large intestine; F17.200 Nicotine dependence, unspecified, uncomplicated; Z85.43 Personal history of malignant neoplasm of ovary; Z85.118 Personal history of other malignant neoplasm of bronchus and lung; M54.12 Radiculopathy, cervical region; Z92.21 Personal history of antineoplastic chemotherapy; M25.78 Osteophyte, vertebrae; Z85.42 Personal history of malignant neoplasm of other parts of uterus; K43.9 Ventral hernia without obstruction or gangrene; K21.9 Gastro-esophageal reflux disease without esophagitis; K29.70 Gastritis, unspecified, without bleeding

== ENCOUNTER 2017-01-16 04:08 | Emergency (ER) | payer MEDICARE, MEDICAID ==
[2017-01-16 04:09] VITALS: BMI 31.2
[2017-01-16] MEDS ORDERED: Sodium Chloride 0.9% 1,000 ML IV ONE (04:22)
--- NOTE | 2017-01-16 04:25 | C.PDOC ---
History Of Present Illness Patient is a 66 y/o female, whose PMHx includes pancreatitis, presents to the ED for evaluation of chest pain for the last few days. Patient states her pain is worse when coughing, and with movement, and states her pain was worse tonight which prompted ED visit. Patient also complaints of epigastric abdominal pain. Otherwise, denies any shortness of breath, lightheadedness, dizziness, n/v/d, fever, chills, or any other complaints at this time. Chief Complaint (Nursing): Chest Pain History Per: Patient History/Exam Limitations: no limitations Onset/Duration Of Symptoms: Days Current Symptoms Are (Timing): Still Present Quality: "Pain" Associated Symptoms: denies: Nausea, Dyspnea, Diaphoresis, Syncope Modifying Factors: None Exacerbating Factors: Movement Alleviating Factors: None Recent travel outside of the [place]: No Additional History Per: Patient Past Medical History Reviewed: Historical Data, Nursing Documentation, Vital Signs Vital Signs: Last Vital Signs Temp 98.2 F 01/16/17 04:16 Pulse 93 H 01/16/17 04:16 Resp 14 01/16/17 04:16 BP 153/85 H 01/16/17 04:16 Pulse Ox 94 L 01/16/17 05:04 - Medical History PMH: Arthritis, HTN, Hypercholesterolemia, Hyperlipidemia, Malignancy (Ovarian cancer, uterine cancer, colon cancer.), Osteoporosis Denies: Chronic Kidney Disease Family History: States: Unknown Family Hx - Social History Hx Tobacco Use: No Hx Alcohol Use: No Hx Substance Use: No - Immunization History Hx Tetanus Toxoid Vaccination: No Hx Influenza Vaccination: No Hx Pneumococcal Vaccination: No Review Of Systems Except As Marked, All Systems Reviewed And Found Negative. Constitutional: Negative for: Fever, Chills Cardiovascular: Positive for: Chest Pain. Negative for: Palpitations, Light Headedness Respiratory: Positive for: Cough. Negative for: Shortness of Breath Gastrointestinal: Positive for: Abdominal Pain. Negative for: Nausea, Vomiting , Diarrhea, Constipation Neurological: Negative for: Headache, Dizziness Physical Exam - Physical Exam Appears: Non-toxic, No Acute Distress Skin: Normal Color, Warm, Dry Head: Atraumatic, Normacephalic Eye(s): bilateral: Normal Inspection Neck: Normal ROM, Supple Chest: Symmetrical, No Tenderness Cardiovascular: Rhythm Regular, No Murmur Respiratory: Normal Breath Sounds, No Accessory Muscle Use, No Rales, No Rhonchi , No Wheezing, Other (active coughing) Gastrointestinal/Abdominal: Soft, Tenderness (epigastric), No Guarding, No Rebound Extremity: Bilateral: Atraumatic, Normal ROM Neurological/Psych: Oriented x3, Normal Speech, Normal Cognition ED Course And Treatment - Laboratory Results Result Diagrams: 01/16/17 04:37 01/16/17 04:37 ECG: Interpreted By Me, Viewed By Me ECG Rhythm: Sinus Rhythm ECG Interpretation: Normal, No Acute Changes Interpretation Of ECG: NSR, nomal tracings. Rate From EC O2 Sat by Pulse Oximetry: 94 (on RA) Pulse Ox Interpretation: Normal - Radiology CXR: Interpreted by Me, Viewed By Me CXR Interpretation: Yes: No Acute Disease, Other (normal chest film). No: Infiltrates Progress Note: Blood work, urinalysis, EKG, CXR ordered and reviewed. Patient was treated with IV fluids, and Toradol. Disposition Counseled Patient/Family Regarding: Diagnosis - Disposition Referrals: [facility] at [facility] [Outside] Disposition: HOME/ ROUTINE Disposition Time: 05:20 Condition: STABLE Prescriptions: Azithromycin [Zithromax] 500 mg PO DAILY #7 tablet Benzonatate [Tessalon Perles] 100 mg PO TID #20 sgl Naproxen [Naprosyn Tab] 375 mg PO TIDPC #20 tab Instructions: Chest Wall Pain (ED), Chronic Bronchitis (ED) Forms: Gen Discharge Inst Kyrgyz Print Language: GEORGIAN - POA Present On Arrival: None - Clinical Impression Clinical Impression: Acute chest wall pain, Bronchitis - Scribe Statement The provider has reviewed the documentation as recorded by the Nik Tony All medical record entries made by the Curtibsamuel were at my direction and personally dictated by me. I have reviewed the chart and agree that the record accurately reflects my personal performance of the history, physical exam, medical decision making, and the department course for this patient. I have also personally directed, reviewed, and agree with the discharge instructions and disposition.
[2017-01-16 04:40] LABS: BASO # 0.1 K/uL (0.0-0.2); BASO % 1.1 % (0.0-2.0); EOS # 0.7 K/uL (0.0-0.7); EOS % 6.3 % (0.0-4.0); HEMOGLOBIN 13.7 g/dL (11.0-16.0); LYMPH # 3.3 K/uL (1.0-4.3); LYMPH % 28.5 % (20.0-40.0); MEAN CELL VOLUME 84.8 fL (81.0-99.0); MEAN CORPUSCULAR HEMOGLOBIN 27.2 pg (27.0-31.0); MEAN CORPUSCULAR HGB CONC 32.1 g/dL (33.0-37.0); MEAN PLATELET VOLUME 9.6 fL (7.2-11.7); MONO # 0.8 K/uL (0.0-0.8); MONO % 7.1 % (0.0-10.0); NEUT # 6.6 K/uL (1.8-7.0); RBC 5.05 Mil/uL (3.80-5.20); RED CELL DISTRIBUTION WIDTH 14.1 % (11.5-14.5); WHITE BLOOD COUNT 11.6 K/uL (4.8-10.8)
[2017-01-16 04:55] LABS: ALBUMIN 3.5 g/dL (3.5-5.0)
[2017-01-16 04:58] LABS: ALB/GLOB RATIO 1.1 (1.0-2.1); AST/SGOT 20 U/L (14-36); BLOOD UREA NITROGEN 19 mg/dL (7-17); GFR AFRICAN-AMERICAN > 60; GFR NON-AFRICAN AMERICAN > 60
[2017-01-16 04:59] LABS: ALT/SGPT 24 U/L (9-52); CALCIUM 8.9 mg/dl (8.6-10.4); LIPASE 97 U/L (23-300)
[2017-01-16] MEDS ORDERED: Azithromycin 500mg/250ML NS 500 MG/250 ML BAG IV STA (05:07)
[2017-01-16] MEDS ORDERED: Azithromycin 500mg/250ML NS 500 MG/250 ML BAG IVPB ONE (05:58)
[2017-01-16 06:47] VITALS: BP 123/71; PULSE 79; RESP 20; TEMP 97.7; O2SAT 97
--- NOTE | 2017-01-16 08:00 | RAD ---
HISTORY: chest pain COMPARISON: 10/05/2015 and 02/11/2011 TECHNIQUE: Chest PA and lateral FINDINGS: LUNGS: No active pulmonary disease. Right upper lobe nodule stable since 2010 PLEURA: No significant pleural effusion identified. No pneumothorax apparent. CARDIOVASCULAR: Normal. Pulmonary vascularity -top-normal- and -stable appearing. OSSEOUS STRUCTURES: An interval vague opacity projects over the superior lateral left clavicle. Artifact/extrinsic etiology questioned. Need to exclude any clinically known subacute to remote traumatic pathology here . VISUALIZED UPPER ABDOMEN: Normal. OTHER FINDINGS: None. IMPRESSION: No active cardiopulmonary disease. Probable extrinsic explanation - superior lateral left clavicle.
--- NOTE | 2017-01-19 12:12 | CARD ---
APPROVED REPORT EKG Measurement Heart [id number] <Conclusion> Normal sinus rhythm Normal ECG
== END 2017-01-16 07:10 | disposition home or self-care (01) ==
LOC: C.ER 04:08
DX: J40 Bronchitis, not specified as acute or chronic (principal); R07.89 Other chest pain
CPT/HCPCS: 71020; 80053; 83690; 84484; 85025; 93005; 96365; 96375; 96376; 99284; J0456; J1885; J7040